=== PATIENT | female | born 1965 | race African-American/Black ===

== ENCOUNTER 2025-01-01 16:54 | Emergency (ER) | payer MEDICAID ==
[~2025-01-01] VITALS: Ht 167.6 cm; Wt 66.0 kg
[2025-01-01 16:58] VITALS: O2SAT 99
[2025-01-01] MEDS: BLOOD SUGAR DIAGNOSTIC STRIP TEST SCH (17:30)
[2025-01-01] MEDS: SODIUM CHLORIDE 0.9% 1,000 ML IV ONE ×2 (18:03→21:53)
[2025-01-01] MEDS: ONDANSETRON HCL 4MG/2ML INJ IV ONE (18:03)
[2025-01-01] MEDS: NALOXONE HCL 1MG/ML 2ML VIAL IV ONE (18:03)
[2025-01-01 18:25] LABS: HEMATOCRIT. 41.6 % (36.0-48.0); HEMOGLOBIN. 13.2 g/dL (12.0-16.0); MEAN PLATELET VOLUME 8.7 fl (7.4-10.4); PLATELET 257 x1000/uL (130-400); RED BLOOD CELL COUNT 4.96 mill/uL (4.2-5.4); RED CELL DISTRIBUTION WIDTH 15.7 % (11.6-14.6)
[2025-01-01 18:32] LABS: BG BASE EXCESS 1.5 mmol/L (-2.0-3.0); BG CARBOXYHEMOGLOBIN 3.0 % (0.5-1.5); BG DEOXYHEMOGLOBIN 7.1 % (0.0-5.0); BG FRACTION INSPIRED OXYGEN 21; BG HCO3 ACT 28.4 mmol/L (21.0-28.0); BG METHEMOGLOBIN 0.3 % (0.5-1.5); BG OXYGEN SATURATION 92.7 % (94.0-98.0); BG OXYHEMOGLOBIN 89.6 % (94.0-98.0); BG PCO2 53.8 mmHg (32.0-45.0); BG PH 7.340 (7.350-7.450); BG PO2 67.9 mmHg (83.0-108.0); BG SAMPLE SITE RIGHT RADIAL; BG TOTAL HEMOGLOBIN 14.6 g/dL (12.0-16.0); BG VENT MODE ROOM AIR
[2025-01-01 18:37] LABS: CREATININE 1.1 mg/dL (0.6-1.0)
[2025-01-01 18:38] LABS: ETHANOL BLOOD < 10 mg/dL (<10); UREA NITROGEN BLOOD 12 mg/dL (9-23)
[2025-01-01 18:40] LABS: PHOSPHORUS 5.4 mg/dL (2.5-4.9)
[2025-01-01 18:51] LABS: LYMPHOCYTES % MANUAL 13.0 % (20.0-60.0); MONOCYTES % MANUAL 5.0 % (2.0-8.0); NEUTROPHILS % MANUAL 82.0 % (45.0-75.0); PLATELET ESTIMATE NORMAL
[2025-01-01 20:53] LABS: CLARITY URINE CLEAR (CLEAR); COLOR URINE YELLOW (YELLOW); GLUCOSE URINE 1+ (NEGATIVE); KETONES URINE NEGATIVE (NEGATIVE); LEUKOCYTE ESTERASE URINE NEGATIVE (NEGATIVE); NITRITE URINE NEGATIVE (NEGATIVE); OCCULT BLOOD URINE NEGATIVE (NEGATIVE); PH URINE 5.5 (4.5-8.0); PROTEIN URINE NEGATIVE (NEGATIVE); SPECIFIC GRAVITY URINE 1.018 (1.005-1.030); UROBILINOGEN URINE 0.2 E.U./dL (0.2-1.0)
[2025-01-01 21:01] LABS: *AMPHETAMINES SCREEN URINE NEGATIVE (NEGATIVE); *BARBITURATES SCREEN URINE NEGATIVE (NEGATIVE); *BENZODIAZEPINES SCREEN URINE NEGATIVE (NEGATIVE); *COCAINE SCREEN URINE PRESUMPTIVE POSITIVE (NEGATIVE); METHADONE URINE SCREEN NEGATIVE (NEGATIVE)
[2025-01-01 21:02] LABS: CANNABINOID URINE SCREEN NEGATIVE (NEGATIVE); ECSTASY MDMA SCREEN URINE NEGATIVE (NEGATIVE); OPIATES URINE SCREEN NEGATIVE (NEGATIVE); PHENCYCLIDINE URINE SCREEN NEGATIVE (NEGATIVE)
[2025-01-01 21:21] LABS: BACTERIA URINE 2+; RBC URINE 0-2 /hpf (0-2); SQUAMOUS EPITHELIAL CELL URINE 1+ /lpf (RARE/1+); WBC URINE 0-2 /hpf (0-2)
[2025-01-01 21:25] LABS: TROPONIN I HIGH SENSITIVITY 18 ng/L (3.0-34)
[2025-01-01] MEDS ORDERED: NALO4SPR BOTHNSTRLS (21:58)
[2025-01-01 22:54] VITALS: BP 158/90; PULSE 70; RESP 13; TEMP 37; O2SAT 99
== END 2025-01-01 22:54 | disposition home or self-care (01) ==
LOC: ER 16:54 → CMPBEDREQ 01-02 08:55
DX: T40.411A Poisoning by fentanyl or fentanyl analogs, accidental (unintentional), initial encounter (principal); I10 Essential (primary) hypertension; R06.02 Shortness of breath; F12.90 Cannabis use, unspecified, uncomplicated; Z79.899 Other long term (current) drug therapy; Y92.89 Other specified places as the place of occurrence of the external cause
CPT/HCPCS: 80051; 80305; 80048; 81003; 82010; 80320; 83880; 83605; 83735; 83930; 84100; 85025; 84484; 36415; 71045; 82805; 82375; 93005; 96361; 96374; 99285; 36600; J2405; J7030; G0480